=== PATIENT | female | born 1935 | race Caucasian/White ===

== ENCOUNTER 2016-09-26 14:21 | Emergency (ER) | payer OTHER ==
[2016-09-26 14:29] VITALS: BP 142/81; PULSE 80; TEMP 98.1; BMI 28.5
--- NOTE | 2016-09-26 14:40 | PDOC ---
Rapid Medical Evaluation Chief Complaint: Nausea Time Seen by Provider: 09/26/16 14:24 Medical Evaluation: Allergies Allergy/AdvReac Type Severity Reaction Status Date / Time No Known Allergies Allergy Verified 09/26/16 14:29 Vital Signs Temp Pulse Resp BP Pulse Ox 98.1 F 80 18 142/81 98 09/26/16 14:25 09/26/16 14:25 09/26/16 14:25 09/26/16 14:25 09/26/16 14:25 09/26/16 14:39 RME Note: I have performed a brief, in-person evaluation of this patient . This patient presents with CC: Headache, nausea, x 1 day; no Fever Pertinent PE findings are: Lungs clear I have ordered: none The patient will proceed to ED for further evaluation. ,
--- NOTE | 2016-09-26 15:12 | PDOC ---
History of Present Illness - General Chief Complaint: Nausea Stated Complaint: NAUSEA Time Seen by Provider: 09/26/16 14:24 History Source: Patient - History of Present Illness Timing/Duration: other (last night) Associated Symptoms: denies: chest pain, cough, diaphoresis, fever/chills, headaches, loss of appetite, malaise, seizure, shortness of breath, syncope Past History - Past Medical History Allergies/Adverse Reactions: Allergies Allergy/AdvReac Type Severity Reaction Status Date / Time No Known Allergies Allergy Verified 09/26/16 14:29 Home Medications: Ambulatory Orders NK [No Known Home Medication] 09/26/16 - Psycho/Social/Smoking Cessation Hx Anxiety: No Suicidal Ideation: No Smoking History: Never smoked Have you smoked in the past 12 months: No Information on smoking cessation initiated: No Hx Alcohol Use: No Drug/Substance Use Hx: No Substance Use Type: None Review of Systems - Review of Systems Constitutional: No: Chills, Fever, Malaise, Weakness HEENTM: No: Blurred Vision Respiratory: No: Cough, Shortness of Breath Cardiac (ROS): No: Chest Pain, Lightheadedness, Palpitations, Syncope ABD/GI: Yes: Nausea. No: Diarrhea, Vomiting, Abdominal cramping : No: Dysuria, Flank Pain, Hematuria Neurological: No: Headache, Weakness, Dizziness *Physical Exam - Vital Signs Last Vital Signs Temp Pulse Resp BP Pulse Ox 98.1 F 80 18 142/81 98 09/26/16 14:25 09/26/16 14:25 09/26/16 14:25 09/26/16 14:25 09/26/16 14:25 - Physical Exam Comments: 09/26/16 15:14 well appearing elderly female, sitting comfortably on chair in ED General Appearance: Yes: Appropriately Dressed HEENT: positive: Normal Voice Neck: positive: Supple Respiratory/Chest: positive: Lungs Clear, Normal Breath Sounds. negative: Respiratory Distress Cardiovascular: positive: Regular Rate, S1, S2 Gastrointestinal/Abdominal: positive: Normal Bowel Sounds, Soft. negative: Tender, Distended, Guarding, Rebound Musculoskeletal: negative: CVA Tenderness Extremity: positive: Normal Inspection Integumentary: positive: Dry, Warm Neurologic: positive: Fully Oriented, Alert, Normal Mood/Affect Medical Decision Making - Medical Decision Making 03/16/17 15:05 81 yo F, denies any pmhx and states she is not on any meds, here w/ nausea since last night. Patient denies any vomiting, abdominal pain, diarrhea, chest pain, shortness of breath, dizziness, PINZON, cough, f/c. States she ate osei w/ tomato prior to onset of symptoms and thinks this might be the source of her sxs. States sxs have since improved significantly and declines nausea meds in ED. See exam Nausea Since improved No additional sxs Well aleksandra and stable in ED w/ unremarkable exam Unclear source of sxs at this time, will r/o cardiac vs metabolic vs infectious -ekg -labs -discuss dispo w/ PMD 09/26/16 15:14 Pt refusing work up in ED. States she feels well and would prefer to call her PMD and see him tomorrow. Pt appears to have capacity to make decisions. Discharged in stable condition to f/u with her PMD *DC/Admit/Observation/Transfer Diagnosis at time of Disposition: Nausea alone - Discharge Dispostion Disposition: HOME Condition at time of disposition: Stable - Patient Instructions Printed Discharge Instructions: DI for Nausea -- Adult Additional Instructions: You have refused EKG and blood work today in the emergency department. Please contact your PMD as soon as possible and schedule appointment. If symptoms recur and/or worsen, return to ER immediately
== END 2016-09-26 15:15 | disposition home or self-care (01) ==
LOC: JERFT 14:21 → SUPCPDRO 14:21 → JERFT 15:15
DX: R11.0 Nausea (principal)
CPT/HCPCS: 99281-25

== ENCOUNTER 2018-04-07 17:04 | Emergency (ER) | payer OTHER ==
--- NOTE | 2018-04-07 17:46 | PDOC ---
Rapid Medical Evaluation Time Seen by Provider: 04/07/18 17:42 Medical Evaluation: Allergies Allergy/AdvReac Type Severity Reaction Status Date / Time No Known Allergies Allergy Verified 09/26/16 14:29 04/07/18 17:42 Pt presents to the ED for mechanical trip and fall at work. Complaining of L wrist pain and R facial pain. Denies LOC. Was able to get right back up after falling. Exam: No ttp of the R face or L wrist Orders: Nothing Pt to proceed to the ED for further evaluation Discharge Disposition - Diagnosis Fall - Referrals - Patient Instructions - Post Discharge Activity
[2018-04-07 17:50] VITALS: BP 166/82; PULSE 91; TEMP 98.1; BMI 27.2
--- NOTE | 2018-04-07 18:18 | PDOC ---
History of Present Illness - General Chief Complaint: Injury Stated Complaint: FALL, FACIAL AND WRIST PAIN Time Seen by Provider: 04/07/18 17:42 History Source: Patient Exam Limitations: No Limitations - History of Present Illness Initial Comments: 04/07/18 18:21 tripped and fell onto outstretched hand/ wrist. C/O pain and concerned as there are plates and screws in wrist. States struck right brow also but no LOC. Denies visual changes, no mental status changes, no nausea, no no neck or back pain. Patient states injury occurred approximately 6 hours ago and since that time his had no significant mental status or neurologic changes. 04/07/18 18:44 Occurred: reports: just prior to arrival, this afternoon Severity: reports: moderate Pain Location: reports: face, upper extremity (left wrist ) Method of Injury: Yes: fall (tripped and fell while at work) Modifying Factors: improves with: None Loss of Consciousness: no loss of consciousness Associated Symptoms (Fall): denies symptoms Past History - Travel Traveled outside of the country in the last 30 days: No Close contact w/someone who was outside of country & ill: No - Past Medical History Allergies/Adverse Reactions: Allergies Allergy/AdvReac Type Severity Reaction Status Date / Time No Known Allergies Allergy Verified 09/26/16 14:29 Home Medications: Ambulatory Orders Acetaminophen 500 mg PO Q6H PRN #30 tablet 04/07/18 COPD: No - Suicide/Smoking/Psychosocial Hx Smoking History: Never smoked Have you smoked in the past 12 months: No Hx Alcohol Use: No Drug/Substance Use Hx: No Substance Use Type: None Review of Systems - Review of Systems Able to Perform ROS?: Yes Is the patient limited [place] proficient: Yes Constitutional: Yes: Symptoms Reported, See HPI HEENTM: Yes: Symptoms Reported, See HPI, Eye Pain (pain with mild contusion ) Respiratory: No: Symptoms reported Musculoskeletal: Yes: Symptoms Reported, See HPI, Joint Pain. No: Joint Swelling Integumentary: Yes: Symptoms Reported, See HPI (right brow contusion ), Bruising Neurological: Yes: See HPI. No: Symptoms reported, Headache All Other Systems: Reviewed and Negative *Physical Exam - Vital Signs Last Vital Signs Temp Pulse Resp BP Pulse Ox 98.1 F 91 H 18 166/82 99 04/07/18 17:47 04/07/18 17:47 04/07/18 17:47 04/07/18 17:47 04/07/18 17:47 - Physical Exam General Appearance: Yes: Nourished, Appropriately Dressed. No: Apparent Distress, Mild Distress HEENT: positive: PRASHANT, Normal ENT Inspection, TMs Normal (cloudy but no hematympanum ), Pharynx Normal, Other (contusion to right lateral brow, no crepitus or step-offs, no tenderness with outpatient. Negative EOMs, has full range of motion at jaw, no chin or mandible tenderness. No dental injury.) Neck: positive: Supple. negative: Tender Respiratory/Chest: positive: Lungs Clear, Normal Breath Sounds Musculoskeletal: positive: Normal Inspection. negative: CVA Tenderness, Vertebral Tenderness Extremity: positive: Normal Capillary Refill, Tender. negative: Normal Range of Motion (limited range of motion secondary to tenderness at distal radius and ulna. Has no true deformity, radial and ulnar pulses are palpable and has full range of motion to fingers, neurovascular intact), Swelling Integumentary: positive: Normal Color, Bruising Neurologic: positive: maxillofacial prosthetics dentist II-XII NML intact, Fully Oriented, Alert, Normal Mood/ Affect, Normal Response, Motor Strength 5/5 Progress Note - Progress Note Progress Note: X-ray negative for fractures or dislocation, distal radius hardware intact without any evidence of fracture or dislocation. Gilberto wrap applied and will medicate with Tylenol for pain relief. Son escorted mother home *DC/Admit/Observation/Transfer Diagnosis at time of Disposition: Left wrist sprain Qualifiers: Encounter type: initial encounter Qualified Code(s): S63.502A - Unspecified sprain of left wrist, initial encounter Contusion Qualifiers: Encounter type: initial encounter Contusion area: head Contusion of head detail : periocular area Laterality: right Qualified Code(s): S00.11XA - Contusion of right eyelid and periocular area, initial encounter - Discharge Dispostion Disposition: HOME Condition at time of disposition: Stable Decision to Admit order: No - Referrals - Patient Instructions Printed Discharge Instructions: DI for Contusion, DI for Wrist Strain Additional Instructions: Rest, ice to area on and off for 15 minutes 4-6 times a day Avoid heavy lifting or exercise until pain and swelling is resolved or until further directed Keep area highly elevated to reduce swelling Use splints/Gilberto wrap as directed Followup with orthopedist in one to 2 days if not improving, if significantly improved may wait one week for followup with orthopedist May use Tylenol one to 2 500 mg tablets every 6 hours as needed for pain - Post Discharge Activity Forms/Work/School Notes: Back to Work
[2018-04-07] MEDS ORDERED: ACETAMINOPHEN 500 MG TABLET (FP) PO ONE (18:33)
[2018-04-07] MEDS ORDERED: ACETAMINOPHEN 500 MG TABLET (FP) ONE (18:36)
== END 2018-04-07 18:48 | disposition home or self-care (01) ==
LOC: JER 17:04 → JERFT 17:04
PROC: 2W3DX1Z Immobilization of Left Lower Arm using Splint (ICD-10-PCS; principal; 2018-04-07)
DX: S63.502A Unspecified sprain of left wrist, initial encounter (principal); S00.11XA Contusion of right eyelid and periocular area, initial encounter; W01.0XXA Fall on same level from slipping, tripping and stumbling without subsequent striking against object, initial encounter; Y93.89 Activity, other specified; Y92.128 Other place in nursing home as the place of occurrence of the external cause; Y99.0 Civilian activity done for income or pay
CPT/HCPCS: 29125; 73110-TC-LR-FY; 99281-25

== ENCOUNTER 2021-10-24 18:59 | Emergency (ER) | payer OTHER ==
[2021-10-24 19:22] VITALS: BP 155/83; PULSE 86; TEMP 97.2; BMI 27.8
[2021-10-24] MEDS ORDERED: ACETAMINOPHEN 500 MG TABLET (FP) PO ONE (19:51)
[2021-10-24] MEDS ORDERED: ACETAMINOPHEN 325 MG TABLET (FP) ONE (19:53)
== END 2021-10-25 00:41 | disposition home or self-care (01) ==
LOC: JER 18:59
DX: M71.22 Synovial cyst of popliteal space [Baker], left knee (principal)
CPT/HCPCS: 73562-TC-LT-FY; 73590-TC-LT-FY; 93971-TC; 99284-25

== ENCOUNTER 2024-11-20 01:02 | Inpatient (IN) | payer OTHER ==
[2024-11-20] MEDS ORDERED: morphine SULFATE 4 MG/ML VIAL ONE (01:14)
[2024-11-20] MEDS: morphine SULFATE 4 MG/ML VIAL IVPUSH ONE (01:22)
[2024-11-20 01:39] LABS: ABSOLUTE IMMATURE GRANULOCYTES 0.04 x10^3/uL (0.0-0.031); BASOPHILS # 0.09 x10^3/uL (0.01-0.08); EOSINOPHIL % 0.8 % (0.7-5.8); EOSINOPHILS # 0.08 x10^3/uL (0.04-0.36); HEMATOCRIT 42.5 % (34.1-44.9); HEMOGLOBIN 13.6 g/dL (11.2-15.7); MEAN CELL VOLUME 93.6 fl (79.4-94.8); MEAN PLT VOLUME 9.5 fl (9.4-12.3); MONOCYTE # 0.55 x10^3/uL (0.24-0.86); MONOCYTE % 5.8 % (4.7-12.5); PLATELET COUNT 265 x10^3/uL (182-369); RDW 12.6 % (12.5-17.0)
[2024-11-20 01:53] LABS: INR 1.03 (0.83-1.09); PROTHROMBIN TIME (PATIENT) 11.2 SEC (9.7-13.0)
[2024-11-20 01:56] LABS: ACTIVATED PTT 30.7 SECONDS (25.2-36.5)
[2024-11-20 02:03] LABS: POTASSIUM 3.4 mmol/L (3.5-5.1)
[2024-11-20 02:05] LABS: ALBUMIN 3.7 g/dl (3.4-5.0)
[2024-11-20 02:06] LABS: BLOOD UREA NITROGEN 17.6 mg/dL (7-18)
[2024-11-20 02:09] LABS: CREATININE 0.9 mg/dL (0.55-1.3)
[2024-11-20 02:10] LABS: BILIRUBIN,TOTAL 0.4 mg/dL (0.2-1)
[2024-11-20] MEDS ORDERED: ACETAMINOPHEN INJECTION 100 ML ONE ×2 (02:24→18:38)
[2024-11-20] MEDS ORDERED: MORPHINE SULFATE 2 MG/ML SYRINGE ONE (02:24)
[2024-11-20] MEDS: morphine CARPU-JECT 2 MG/1 ML DISP.SYRIN IVPUSH ONE (02:32)
[2024-11-20] MEDS: ACETAMINOPHEN 1000 MG/100 ML BAG IVPB ONE (02:33)
[2024-11-20 03:00] LABS: CALCIUM 9.5 mg/dL (8.5-10.1); TOT PROT 6.8 g/dl (6.4-8.2)
[2024-11-20] MEDS: POTASSIUM CHLORIDE ORAL LIQUID 20 MEQ/15 ML PO ONE (04:16)
[2024-11-20] MEDS ORDERED: POTASSIUM CHLORIDE TABS 20 MEQ TABLET.ER (FP) PO ONE (04:19)
[2024-11-20] MEDS: POTASSIUM CHLORIDE TABS 20 MEQ TABLET.ER (FP) PO ONE (04:57)
[2024-11-20 06:16] LABS: HEMATOCRIT 40.1 % (34.1-44.9); MCHC 32.4 g/dl (32.2-35.5); MEAN CELL VOLUME 93.3 fl (79.4-94.8); MEAN PLT VOLUME 9.7 fl (9.4-12.3); PLATELET COUNT 240 x10^3/uL (182-369); RDW 12.6 % (12.5-17.0)
[2024-11-20 06:28] LABS: POTASSIUM 4.2 mmol/L (3.5-5.1)
[2024-11-20 06:32] LABS: ALBUMIN 3.3 g/dl (3.4-5.0); BLOOD UREA NITROGEN 17.9 mg/dL (7-18); CALCIUM 9.1 mg/dL (8.5-10.1)
[2024-11-20 06:36] LABS: BILIRUBIN,TOTAL 0.3 mg/dL (0.2-1); CREATININE 0.8 mg/dL (0.55-1.3); TOT PROT 6.2 g/dl (6.4-8.2)
[2024-11-20 06:55] VITALS: BMI 24.7
[2024-11-20] MEDS: SODIUM CHLORIDE 1,000 ML IV SCH ×2 (08:16→18:16)
[2024-11-20] MEDS ORDERED: LIDOCAINE HCL 2% JELLY 6 ML TP ONE (12:48)
[2024-11-20] MEDS ORDERED: PROPOFOL 20 ML ONE (12:49)
[2024-11-20] MEDS ORDERED: PROPOFOL 40 ML ONE (12:49)
[2024-11-20] MEDS ORDERED: MIDAZOLAM HCL 2 MG/2 ML SINGLE DOSE VIAL ONE (12:52)
[2024-11-20] MEDS: ACETAMINOPHEN 1000 MG/100 ML BAG IVPB PRN ×2 (13:15→18:40)
[2024-11-20] MEDS ORDERED: ceFAZolin SODIUM 1 GM VIAL ONE (14:37)
[2024-11-20] MEDS ORDERED: VANCOMYCIN 1,000 MG VIAL (RESTRICTED TO ID ONLY) ONE (14:37)
[2024-11-20 14:42] LABS: EPI CELLS 10 /uL (0-25.1); HYALINE CASTS 0 /uL (0-3.1); URINE APPEARANCE CLEAR; URINE BACTERIA >9,000 /uL (0-1359); URINE BILIRUBIN NEGATIVE (NEGATIVE); URINE COLOR YELLOW; URINE GLUCOSE (UA) NEGATIVE (NEGATIVE); URINE KETONE 2+ (NEGATIVE); URINE LEUK ESTERASE TRACE (NEGATIVE); URINE NITRITE NEGATIVE (NEGATIVE); URINE PROTEIN NEGATIVE (NEGATIVE); URINE RBC 19 /uL (0-23.9); URINE UROBILINOGEN 0.2 mg/dL (0.2-1.0)
[2024-11-20] MEDS ORDERED: ONDANSETRON 4 MG/2 ML VIAL IVPUSH PRN ×2 (15:03→17:03)
[2024-11-20] MEDS ORDERED: LACTATED RINGERS SOLUTION 1,000 ML IV SCH (15:15)
[2024-11-20] MEDS ORDERED: PROMETHAZINE HCL 25 MG/1 ML VIAL IVPB PRN (15:26)
[2024-11-20] MEDS ORDERED: HYDROmorphone HCl 2 MG/ML VIAL IVPUSH PRN (15:35)
[2024-11-20] MEDS ORDERED: HYDROmorphone HCL CARPU-JECT 2 MG/1 ML DISP.SYRIN IVPUSH PRN (15:41)
[2024-11-20] MEDS: ceFAZolin SODIUM 1 GM VIAL IVPB ONE (15:45)
[2024-11-20] MEDS ORDERED: TRANEXAMIC ACID 1000 MG/10 ML VIAL ONE (16:03)
[2024-11-20] MEDS: oxyCODONE HCL 5 MG TABLET PO PRN (20:35)
[2024-11-20] MEDS: CEFAZOLIN 2 GM/D5W 2 GM/50 ML ML IVPB SCH (22:38)
[2024-11-20] MEDS ORDERED: CEFAZOLIN SODIUM 2 GM in DEXTROSE 5%-WATER 100 ML IVPB SCH (23:00)
[2024-11-21] MEDS: HYDROmorphone HCL CARPU-JECT 2 MG/1 ML DISP.SYRIN IVPUSH PRN (04:03)
[2024-11-21] MEDS ORDERED: ASPIRIN 325 MG TABLET PO SCH (08:00)
[2024-11-21 08:47] LABS: ABSOLUTE IMMATURE GRANULOCYTES 0.06 x10^3/uL (0.0-0.031); BASOPHILS # 0.01 x10^3/uL (0.01-0.08); HEMATOCRIT 40.1 % (34.1-44.9); HEMATOCRIT 40.2 % (34.1-44.9); HEMOGLOBIN 13.2 g/dL (11.2-15.7); MCHC 32.8 g/dl (32.2-35.5); MCHC 32.9 g/dl (32.2-35.5); MEAN CELL VOLUME 91.3 fl (79.4-94.8); MEAN CELL VOLUME 91.6 fl (79.4-94.8); MEAN PLT VOLUME 9.5 fl (9.4-12.3); MEAN PLT VOLUME 9.7 fl (9.4-12.3); MONOCYTE # 0.93 x10^3/uL (0.24-0.86); MONOCYTE % 8.4 % (4.7-12.5); PLATELET COUNT 223 x10^3/uL (182-369); PLATELET COUNT 224 x10^3/uL (182-369); RDW 12.7 % (12.5-17.0)
[2024-11-21] MEDS: ASPIRIN 325 MG TABLET PO SCH (09:02)
[2024-11-21] MEDS: PANTOPRAZOLE 40 MG TABLET PO SCH (09:02)
[2024-11-21] MEDS: MULTIVITAMINS (DAILY MVI) TABLET (FP) PO SCH (09:02)
[2024-11-21 09:21] LABS: ALBUMIN 3.1 g/dl (3.4-5.0); BLOOD UREA NITROGEN 20.6 mg/dL (7-18)
[2024-11-21 09:22] LABS: CALCIUM 9.1 mg/dL (8.5-10.1)
[2024-11-21 09:23] LABS: MAGNESIUM 1.9 mg/dL (1.8-2.4)
[2024-11-21 09:24] LABS: CREATININE 0.9 mg/dL (0.55-1.3)
[2024-11-21 09:25] LABS: BILIRUBIN,TOTAL 0.5 mg/dL (0.2-1); PHOSPHOROUS 3.3 mg/dL (2.5-4.9); TOT PROT 6.2 g/dl (6.4-8.2)
[2024-11-21] MEDS ORDERED: MULTIVITAMINS (DAILY MVI) TABLET (FP) PO SCH (10:00)
[2024-11-21] MEDS ORDERED: PANTOPRAZOLE 40 MG TABLET PO SCH (10:00)
[2024-11-22 08:25] LABS: ABSOLUTE IMMATURE GRANULOCYTES 0.04 x10^3/uL (0.0-0.031); BASOPHILS # 0.04 x10^3/uL (0.01-0.08); EOSINOPHIL % 0.1 % (0.7-5.8); EOSINOPHILS # 0.01 x10^3/uL (0.04-0.36); HEMOGLOBIN 11.9 g/dL (11.2-15.7); MCHC 32.2 g/dl (32.2-35.5); MEAN PLT VOLUME 9.8 fl (9.4-12.3); MONOCYTE # 1.41 x10^3/uL (0.24-0.86); MONOCYTE % 13.6 % (4.7-12.5); PLATELET COUNT 181 x10^3/uL (182-369); RDW 12.8 % (12.5-17.0)
[2024-11-22 08:26] LABS: HEMATOCRIT 37.2 % (34.1-44.9); MCHC 32.3 g/dl (32.2-35.5); MEAN CELL VOLUME 92.8 fl (79.4-94.8); MEAN PLT VOLUME 9.7 fl (9.4-12.3); PLATELET COUNT 185 x10^3/uL (182-369); RDW 12.8 % (12.5-17.0)
[2024-11-22 08:45] LABS: CALCIUM 8.4 mg/dL (8.5-10.1)
[2024-11-22 08:46] LABS: ALBUMIN 2.9 g/dl (3.4-5.0)
[2024-11-22 08:49] LABS: CREATININE 0.8 mg/dL (0.55-1.3)
[2024-11-22 08:50] LABS: PHOSPHOROUS 1.9 mg/dL (2.5-4.9)
[2024-11-22 08:51] LABS: BILIRUBIN,TOTAL 0.9 mg/dL (0.2-1); TOT PROT 5.6 g/dl (6.4-8.2)
[2024-11-22] MEDS: NAPH,MB-DB/K PH,MBDB POWDER PACKET PO SCH (11:09)
[2024-11-22 17:49] LABS: POTASSIUM 3.7 mmol/L (3.5-5.1)
[2024-11-22 22:04] VITALS: RESP 18
[2024-11-23 08:49] LABS: HEMATOCRIT 34.7 % (34.1-44.9); HEMOGLOBIN 11.2 g/dL (11.2-15.7); MCHC 32.3 g/dl (32.2-35.5); PLATELET COUNT 192 x10^3/uL (182-369); RDW 12.9 % (12.5-17.0)
[2024-11-23 08:50] LABS: ABSOLUTE IMMATURE GRANULOCYTES 0.04 x10^3/uL (0.0-0.031); BASOPHILS # 0.05 x10^3/uL (0.01-0.08); EOSINOPHILS # 0.09 x10^3/uL (0.04-0.36); HEMATOCRIT 34.1 % (34.1-44.9); HEMOGLOBIN 11.2 g/dL (11.2-15.7); MCHC 32.8 g/dl (32.2-35.5); MEAN CELL VOLUME 93.4 fl (79.4-94.8); MEAN PLT VOLUME 10.1 fl (9.4-12.3); MONOCYTE % 11.5 % (4.7-12.5); PLATELET COUNT 179 x10^3/uL (182-369); RDW 12.9 % (12.5-17.0)
[2024-11-23 10:45] LABS: ALBUMIN 2.6 g/dl (3.4-5.0); CALCIUM 8.4 mg/dL (8.5-10.1)
[2024-11-23 10:46] LABS: BLOOD UREA NITROGEN 16.2 mg/dL (7-18); MAGNESIUM 2.1 mg/dL (1.8-2.4)
[2024-11-23 10:49] LABS: CREATININE 0.7 mg/dL (0.55-1.3); PHOSPHOROUS 2.4 mg/dL (2.5-4.9)
[2024-11-23 10:50] LABS: TOT PROT 5.3 g/dl (6.4-8.2)
[2024-11-24] MEDS: oxyCODONE HCL 5 MG TABLET PO PRN (01:28)
[2024-11-24] MEDS: DOCUSATE SODIUM 100 MG CAPSULE (FP) PO PRN (10:09)
[2024-11-24 10:43] VITALS: BP 125/75; PULSE 87; TEMP 99.1
== END 2024-11-24 13:48 | DRG 522 ==
LOC: JER 01:02 → JERBED 04:50 → J8W 06:49 → J6S 19:48
PROVIDERS: ADMIT Student in an Organized Health Care Education/Training Program; ATTEND Internal Medicine
PROC: 0SRS0JA Replacement of Left Hip Joint, Femoral Surface with Synthetic Substitute, Uncemented, Open Approach (ICD-10-PCS; principal; 2024-11-20 15:00)
DX: S72.002A Fracture of unspecified part of neck of left femur, initial encounter for closed fracture (principal); E87.6 Hypokalemia; R55 Syncope and collapse; W01.0XXA Fall on same level from slipping, tripping and stumbling without subsequent striking against object, initial encounter; Y93.89 Activity, other specified; Y92.009 Unspecified place in unspecified non-institutional (private) residence as the place of occurrence of the external cause; Y99.8 Other external cause status
CPT/HCPCS: 36415; 71045-TC-FY; 72170-TC-FY; 73502-TC-LT-FY; 73521-TC-FY; 73610-TC-LT-FY; 73700-TC-RT; 80048; 80053; 80061; 81003; 83735; 84100; 85025; 85027; 85610; 85730; 86850; 86900; 86901; 87635; 88305-TC; 88311-TC; 88342-TC; 93005; 93010; 93880-TC; 94010; 94760; 97116-GP; 99285-25; C1776; J0131

== ENCOUNTER 2024-12-18 10:55 | Emergency (ER) | payer OTHER ==
[2024-12-18 11:05] VITALS: BP 128/65; PULSE 95; RESP 16; TEMP 98.2; BMI 26.5
[2024-12-18] MEDS ORDERED: POLYETHYLENE GLYCOL (HEALTHYLAX) 3350 17 GM PACKET PO ONE (12:00)
[2024-12-18] MEDS: SODIUM CHLORIDE 1,000 ML IV STA (13:00)
[2024-12-18 13:14] LABS: ABSOLUTE IMMATURE GRANULOCYTES 0.02 x10^3/uL (0.0-0.031); BASOPHILS # 0.06 x10^3/uL (0.01-0.08); EOSINOPHIL % 0.9 % (0.7-5.8); EOSINOPHILS # 0.06 x10^3/uL (0.04-0.36); HEMATOCRIT 33.5 % (34.1-44.9); HEMOGLOBIN 10.7 g/dL (11.2-15.7); MCHC 31.9 g/dl (32.2-35.5); MEAN CELL VOLUME 95.4 fl (79.4-94.8); MEAN PLT VOLUME 8.9 fl (9.4-12.3); MONOCYTE # 0.54 x10^3/uL (0.24-0.86); MONOCYTE % 8.5 % (4.7-12.5); PLATELET COUNT 279 x10^3/uL (182-369); RDW 13.9 % (12.5-17.0)
[2024-12-18 13:17] LABS: EPI CELLS 4 /uL (0-25.1); HYALINE CASTS 0 /uL (0-3.1); URINE APPEARANCE CLEAR; URINE BACTERIA 4150 /uL (0-1359); URINE BILIRUBIN NEGATIVE (NEGATIVE); URINE COLOR YELLOW; URINE GLUCOSE (UA) NEGATIVE (NEGATIVE); URINE KETONE TRACE (NEGATIVE); URINE LEUK ESTERASE 2+ (NEGATIVE); URINE NITRITE NEGATIVE (NEGATIVE); URINE PROTEIN NEGATIVE (NEGATIVE); URINE RBC 18 /uL (0-23.9); URINE UROBILINOGEN 0.2 mg/dL (0.2-1.0); URINE WBC 128 /uL (0-25.8)
[2024-12-18 13:21] LABS: INR 1.13 (0.83-1.09); PROTHROMBIN TIME (PATIENT) 12.3 SEC (9.7-13.0)
[2024-12-18 13:30] LABS: ACTIVATED PTT 29.6 SECONDS (25.2-36.5)
[2024-12-18 13:32] LABS: MAGNESIUM 2.1 mg/dL (1.8-2.4)
[2024-12-18 13:33] LABS: CALCIUM 9.9 mg/dL (8.5-10.1)
[2024-12-18 13:35] LABS: CREATININE 0.7 mg/dL (0.55-1.3)
[2024-12-18 13:36] LABS: BILIRUBIN,DIRECT 0.2 mg/dL (0.0-0.2); BLOOD UREA NITROGEN 14.5 mg/dL (7-18)
[2024-12-18 13:38] LABS: BILIRUBIN,TOTAL 0.5 mg/dL (0.2-1)
[2024-12-18] MEDS ORDERED: CEFTRIAXONE 1 GM/50 ML BAG ONE (14:03)
[2024-12-18] MEDS: CEFTRIAXONE 1,000 MG in DEXTROSE 5%-WATER - 50 ML IVPB ONE (14:08)
[2024-12-18] MEDS ORDERED: POLYETHYLENE GLYCOL (HEALTHYLAX) 3350 17 GM PACKET ONE (18:35)
[2024-12-18] MEDS ORDERED: LACTULOSE 20 GM/30 ML UDC (FOR ORAL USE ONLY) ONE (18:36)
[2024-12-18] MEDS ORDERED: DOCUSATE SODIUM 100 MG CAPSULE (FP) PO ONE (18:36)
[2024-12-18] MEDS: DOCUSATE NA 100 MG/10 ML UNIT-DOSE CUPS PO ONE (18:51)
[2024-12-18] MEDS: SODIUM PHOSPHATE/NA BIPHOS 133 ML ENEMA PR ONE (18:51)
[2024-12-18] MEDS: LACTULOSE 20 GM/30 ML UDC (FOR ORAL USE ONLY) PO ONE (18:52)
[2024-12-18] MEDS: MINERAL OIL ENEMA 133 ML ENEMA RC ONE (18:52)
[2024-12-18] MEDS: POLYETHYLENE GLYCOL (HEALTHYLAX) 3350 17 GM PACKET PO ONE (18:52)
== END 2024-12-18 19:27 | disposition home or self-care (01) ==
LOC: JER 10:55
PROC: 3E03329 Introduction of Other Anti-infective into Peripheral Vein, Percutaneous Approach (ICD-10-PCS; principal; 2024-12-18)
PROC: 3E0337Z Introduction of Electrolytic and Water Balance Substance into Peripheral Vein, Percutaneous Approach (ICD-10-PCS; 2024-12-18)
DX: K59.00 Constipation, unspecified (principal); R35.0 Frequency of micturition; M79.89 Other specified soft tissue disorders; R14.3 Flatulence; M25.562 Pain in left knee; I44.0 Atrioventricular block, first degree
CPT/HCPCS: 0241U-QW; 36415; 73562-TC-LT-FY; 74177-TC; 80053; 81003; 82248; 83605; 83690; 83735; 84100; 85025; 85610; 85730; 87040; 87086; 93005; 93010; 93971-TC; 99285-25